=== PATIENT | male | born 1990 | race Caucasian/White ===

== ENCOUNTER 2017-02-07 19:59 | Emergency (ER) | payer BC ==
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
== END 2017-02-07 22:00 | disposition home or self-care (01) ==
LOC: ER 19:59
DX: S20.212A Contusion of left front wall of thorax, initial encounter (principal); S30.1XXA Contusion of abdominal wall, initial encounter; J40 Bronchitis, not specified as acute or chronic; M54.5 Low back pain; M25.552 Pain in left hip; V86.99XA Unspecified occupant of other special all-terrain or other off-road motor vehicle injured in nontraffic accident, initial encounter; Y92.410 Unspecified street and highway as the place of occurrence of the external cause